=== PATIENT | female | born 1970 | race Caucasian/White ===

== ENCOUNTER 2018-11-25 17:31 | Emergency (ER) | payer BC ==
[~2018-11-25] VITALS: Ht 152.4 cm; Wt 68.5 kg
[~2018-11-25 17:31] MED LIST: ACYCLOVIR400 MG PO; CYMBALTA20 MG PO; CYMBALTA60 MG PO; FUROSEMIDE20 MG PO; GABAPENTIN100 MG PO; KEFLEX500 MG PO; KEPPRA750 MG PO; LEVETIRACETAM1000 MG PO; LEVOTHYROXINE88 MCG PO; LIPITOR40 MG PO; MECLIZINE HCL25 MG PO; MELATONIN5 M2 PO; NAPROXEN500 MG PO; NORCO 5-325 TA1 EACH PO; PHYTOMULTI TAB1 EACH PO; SYNTHROID125 MCG PO; TOPIRAMATE100 MG PO
== END 2018-11-25 19:54 | disposition short-term general hospital (02) ==
LOC: ED 17:31
DX: R56.9 Unspecified convulsions (principal); S02.119A Unspecified fracture of occiput, initial encounter for closed fracture; S06.4X0A Epidural hemorrhage without loss of consciousness, initial encounter; F17.200 Nicotine dependence, unspecified, uncomplicated; Z88.8 Allergy status to other drugs, medicaments and biological substances; Z79.899 Other long term (current) drug therapy; W01.198A Fall on same level from slipping, tripping and stumbling with subsequent striking against other object, initial encounter
CPT/HCPCS: 70450; 72125; 80053; 85025; 99291; G0390

== ENCOUNTER 2020-05-24 09:15 | Emergency (ER) | payer OTHER, BC ==
[~2020-05-24] VITALS: Ht 152.4 cm; Wt 70.3 kg
[2020-05-24] MEDS ORDERED: MELOXICAM7.5 MG PO (11:01)
[2020-05-24] MEDS ORDERED: HYDROCODON-ACE1 EA10 PO (11:01)
== END 2020-05-24 11:13 | disposition home or self-care (01) ==
LOC: ED 09:15
DX: S46.911A Strain of unspecified muscle, fascia and tendon at shoulder and upper arm level, right arm, initial encounter (principal); S29.011A Strain of muscle and tendon of front wall of thorax, initial encounter; S53.402A Unspecified sprain of left elbow, initial encounter; W18.30XA Fall on same level, unspecified, initial encounter; G40.909 Epilepsy, unspecified, not intractable, without status epilepticus; F17.200 Nicotine dependence, unspecified, uncomplicated; Z88.8 Allergy status to other drugs, medicaments and biological substances; Z79.899 Other long term (current) drug therapy
CPT/HCPCS: 71101; 73030; 73080; 99283-25

== ENCOUNTER 2020-09-04 11:53 | Emergency (ER) | payer BC ==
[~2020-09-04] VITALS: Ht 152.4 cm; Wt 70.3 kg
[~2020-09-04 11:53] MED LIST changes: +HYDROCODON-ACE1 EA10 PO; +MELOXICAM7.5 MG PO
--- OUTSIDE RECORDS SUMMARY | 2020-09-04 11:56 | XMS ---
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 Yaneth has no Care Guidelines for this patient. [place] VISIT COUNT (12 MO.) 2 [facility] TOTAL 2 NOTE: Visits indicate total known visits. ED/C VISIT TRACKING (12 MO.) 09/04/2020 11:55 [facility] [place] TYPE: Emergency COMPLAINT: - FALL 05/24/2020 09:[address] 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
[2020-09-04] MEDS ORDERED: ONDANSETRON ODT8 MG PO (13:24)
[2020-09-04] MEDS ORDERED: PROPRANOLOL HCL20 MG PO (13:25)
[2020-09-04] MEDS ORDERED: ATORVASTATIN CA40 MG PO (13:26)
[2020-09-04] MEDS ORDERED: LEVOTHYROXINE125 MCG PO (13:26)
[2020-09-04] MEDS ORDERED: RIZATRIPTAN10 MG PO (13:26)
[2020-09-04] MEDS ORDERED: GABAPENTIN300 MG PO (13:27)
== END 2020-09-04 16:02 | disposition home or self-care (01) ==
LOC: ED 11:53
DX: G40.909 Epilepsy, unspecified, not intractable, without status epilepticus (principal); S93.401A Sprain of unspecified ligament of right ankle, initial encounter; S20.219A Contusion of unspecified front wall of thorax, initial encounter; W10.9XXA Fall (on) (from) unspecified stairs and steps, initial encounter; Z88.8 Allergy status to other drugs, medicaments and biological substances; Z79.899 Other long term (current) drug therapy
CPT/HCPCS: 71111; 73610; 80053; 81001; 83735; 85025; 96374; 99284-25; J1885; J7030

== ENCOUNTER 2021-08-09 04:53 | Emergency (ER) | payer OTHER, BC ==
[~2021-08-09] VITALS: Ht 152.4 cm; Wt 62.1 kg
[~2021-08-09 04:53] MED LIST changes: +ATORVASTATIN CA40 MG PO; +GABAPENTIN300 MG PO; +LEVOTHYROXINE125 MCG PO; +ONDANSETRON ODT8 MG PO; +PROPRANOLOL HCL20 MG PO; +RIZATRIPTAN10 MG PO
--- OUTSIDE RECORDS SUMMARY | 2021-08-09 04:55 | XMS ---
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 Care History Medical/Surgical 09/07/2020 [facility] - Patient is currently established with [facility]. If patient is seen in the ED during business hours. Please contact CHWs at [facility]. Care Recommendation: If this patient has had 5 or more Emergency Department visits in the last 12 months.\T\nbsp; Patient will require education on the scope and purpose of the ED as an acute care provider not a Primary Care Provider and should not be utilized for chronic conditions.\T\nbsp; These are guidelines and the provider should exercise clinical judgment when providing care. E.D. VISIT COUNT (12 MO.) 2 [facility] TOTAL 2 NOTE: Visits indicate total known visits. ED/UCC VISIT TRACKING (12 MO.) 08/09/2021 04:[address] 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
[2021-08-09] MEDS ORDERED: POTASSIUM CHLO20 ME1 PO (06:41)
== END 2021-08-09 06:52 | disposition home or self-care (01) ==
LOC: ED 04:53
DX: S70.11XA Contusion of right thigh, initial encounter (principal); E87.6 Hypokalemia; R42 Dizziness and giddiness; W01.0XXA Fall on same level from slipping, tripping and stumbling without subsequent striking against object, initial encounter; Z88.8 Allergy status to other drugs, medicaments and biological substances; Z79.899 Other long term (current) drug therapy
CPT/HCPCS: 36415; 70450; 73502; 80053; 81001; 85025; 99284-25; A9270

== ENCOUNTER 2023-01-10 11:45 | Emergency (ER) | payer BC ==
[~2023-01-10] VITALS: Ht 152.4 cm; Wt 65.0 kg
[~2023-01-10 11:45] MED LIST changes: +PERCOCET 5-3251 EACH PO; +POTASSIUM CHLO20 ME1 PO
--- OUTSIDE RECORDS SUMMARY | 2023-01-10 11:48 | XMS ---
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 Care History Medical/Surgical 09/07/2020 [facility] - Patient is currently established with [facility]. If patient is seen in the ED during business hours. Please contact CHWs at [facility]. Care Recommendation: If this patient has had [...] care. E.D. VISIT COUNT (12 MO.) [address] [facility] TOTAL 2 NOTE: Visits indicate total known visits. 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
[2023-01-10 13:37] VITALS: BP 108/78
== END 2023-01-10 13:39 | disposition home or self-care (01) ==
LOC: ED 11:45
DX: S02.0XXA Fracture of vault of skull, initial encounter for closed fracture (principal); S02.119A Unspecified fracture of occiput, initial encounter for closed fracture; W19.XXXA Unspecified fall, initial encounter; G40.909 Epilepsy, unspecified, not intractable, without status epilepticus; Z88.8 Allergy status to other drugs, medicaments and biological substances; Z79.899 Other long term (current) drug therapy
CPT/HCPCS: 70450; 72125

== ENCOUNTER 2023-08-25 20:56 | Emergency (ER) | payer OTHER, BC ==
[~2023-08-25] VITALS: Ht 152.4 cm; Wt 59.0 kg
[2023-08-25] MEDS ORDERED: CIPROFLOXACIN HCL/DEXAMETH 7.5 ML HOME.PACK OTIC ONE (23:00)
[2023-08-25 23:23] VITALS: BP 90/72
== END 2023-08-25 23:23 | disposition home or self-care (01) ==
LOC: ED 20:56
DX: M25.562 Pain in left knee (principal); W54.1XXA Struck by dog, initial encounter; Z88.8 Allergy status to other drugs, medicaments and biological substances; Z79.890 Hormone replacement therapy; Z79.899 Other long term (current) drug therapy
CPT/HCPCS: 73502; 73560; 99283-25